=== PATIENT | male | born 1960 | race Caucasian/White ===

== ENCOUNTER 2019-09-23 05:36 | Emergency (ER) | payer BC ==
[2019-09-23 05:50] VITALS: BP 152/92; PULSE 94; TEMP 98.7; BMI 27.9
[2019-09-23] MEDS ORDERED: DIPHTH,PERTUSS(ACELL),TET 0.5 ML DISP.SYRIN IM ONE ×2 (05:55)
--- NOTE | 2019-09-23 06:14 | PDOC ---
History of Present Illness - General Chief Complaint: Injury Stated Complaint: LACERATION LEFT PINKY Time Seen by Provider: 09/23/19 05:53 History Source: Patient Exam Limitations: No Limitations (0) - History of Present Illness Initial Comments: 09/23/19 06:14 This is a 59-year-old male who comes in complaining of laceration to the dorsum of his left middle finger. Patient was doing some dishes when he cut it on a knife. He states that he forgot he had put in the sink. Patient does not remember what his last tetanus is. Patient denies any other injuries. Allergies: as per nursing notes Past Medical History: Hypertension, high cholesterol Social history: Lives with family. No smoking. No alcohol. No illicit drugs. Surgical history: None General: No fevers or chills, no weakness, no weight loss HEENT: No change in vision. No sore throat,. No ear pain CardioVascular: no chest discomfort. No shortness of breath Respiratory:No cough, or wheezing. Gastrointestinal: no nausea, vomiting, diarrhea or constipation, No rectal bleeding Genitourinary: No dysuria, hematuria, or frequency Musculoskeletal: Laceration dorsum of left finger Neurologic: No headache, vertigo, dizziness or loss of consciousness Psychiatric: nor depression Skin: No rashes or easy bruising Endocrine: no increased thirst or abnormal weight change Allergic: no skin or latex allergy All other systems reviewed and normal GENERAL: The patient is awake, alert, and fully oriented, in no acute distress. HEAD: Normal with no signs of trauma. EYES: Pupils equal, round and reactive to light, extraocular movements intact, sclera anicteric, conjunctiva clear. EXTREMITIES:atraumatic, left finger dorsum, there is approximately a V-shaped 3 cm laceration over the dorsum of the first phalanx. Patient is able to fully extend his finger and sensation is intact distally. NEUROLOGICAL: Normal speech, normal gait. PSYCH: Normal mood, normal affect. SKIN: Warm, Dry, normal turgor, no rashes or lesions noted. Procedure note: Laceration repair Finger was anesthetized with 1% lidocaine no epinephrine via digital block approximately 3 cc of anesthesia was used. Laceration was cleaned Laceration was closed with a total of 8 sutures of simple interrupted 4-0 Ethilon Bacitracin and sterile dressing was applied patient tolerated well Assessment and plan: This is a 59-year-old male with a laceration of his left middle finger that was cleaned and closed. Patient given discharge instructions on laceration care Patient will return in 1 week for suture removal. Past History - Past Medical History Allergies/Adverse Reactions: Allergies Allergy/AdvReac Type Severity Reaction Status Date / Time shellfish derived Allergy Severe Swelling Verified 09/23/19 05:38 Penicillins Allergy Unknown Verified 09/23/19 05:38 Home Medications: Ambulatory Orders Carvedilol 20 mg PO BID 01/13/15 EPINEPHrine (EPI-PEN 0.3MG) [Epipen 0.3MG -] 0.3 mg IM ASDIR #2 pens 01/13/15 Lisinopril/Hydrochlorothiazide [Lisinopril-Hctz 20-12.5 mg Tab] 1 each PO DAILY 01/13/15 Omeprazole Magnesium [Prilosec (OTC)] 20 mg PO DAILY 01/13/15 Simvastatin [Zocor -] 40 mg PO HS 01/13/15 Diazepam [Valium] 10 mg PO TID 09/23/19 Oxycodone HCl [Oxycodone HCl ER] 10 mg PO TID 09/23/19 COPD: No HTN: Yes Hypercholesterolemia: Yes Other medical history: BACK ISSUES - Psycho Social/Smoking Cessation Hx Smoking History: Never smoked Have you smoked in the past 12 months: No Number of Cigarettes Smoked Daily: 3 Information on smoking cessation initiated: No 'Breaking Loose' booklet given: 01/13/15 Hx Alcohol Use: Yes Drug/Substance Use Hx: No Substance Use Type: None *Physical Exam - Vital Signs Last Vital Signs Temp Pulse Resp BP Pulse Ox 98.7 F 94 H 16 152/92 96 09/23/19 05:46 09/23/19 05:46 09/23/19 05:46 09/23/19 05:46 09/23/19 05:46 Discharge - Discharge Information Problems reviewed: Yes Clinical Impression/Diagnosis: Laceration of left little finger Qualifiers: Encounter type: initial encounter Damage to nail status: without damage Foreign body presence: without foreign body Qualified Code(s): S61.217A - Laceration without foreign body of left little finger without damage to nail, initial encounter Condition: Stable Disposition: HOME - Admission No - Follow up/Referral - Patient Discharge Instructions Patient Printed Discharge Instructions: DI for Laceration Repair -- Simple Additional Instructions: Clean the area once a day with some peroxide reapply bacitracin or an antibiotic ointment. Keep area covered with a Band-Aid for the first 2 to 3 days after that you can leave it open as long as you are not working in an environment when you get dirt in it. Keep it dry for the next 72 hours and wear gloves as needed. Tylenol or Motrin as needed for pain. Return in 7 to 8 days for suture removal. Return to the emergency department immediately with ANY new, persistent or worsening symptoms. Continue any medications as previously prescribed by your physician. You should follow up with your primary doctor as soon as possible regarding today's emergency department visit. . Please make sure your doctor reviews the results of your emergency evaluation. Thank you for coming to the Emergency Department today for your care. It was a pleasure to see you today. Please note that your evaluation is INCOMPLETE until you follow-up with your doctor. - Post Discharge Activity
== END 2019-09-23 06:27 | disposition home or self-care (01) ==
LOC: FER 05:36
PROC: 0HQGXZZ Repair Left Hand Skin, External Approach (ICD-10-PCS; principal; 2019-09-23)
PROC: 3E0234Z Introduction of Serum, Toxoid and Vaccine into Muscle, Percutaneous Approach (ICD-10-PCS; 2019-09-23)
DX: S61.213A Laceration without foreign body of left middle finger without damage to nail, initial encounter (principal); W26.0XXA Contact with knife, initial encounter; Y93.G1 Activity, food preparation and clean up; Y92.000 Kitchen of unspecified non-institutional (private) residence as the place of occurrence of the external cause; I10 Essential (primary) hypertension; E78.00 Pure hypercholesterolemia, unspecified; Z88.0 Allergy status to penicillin; Z91.013 Allergy to seafood
CPT/HCPCS: 90715; 99281-25